=== PATIENT | male | born 1940 | race Caucasian/White ===

== ENCOUNTER 2018-06-13 01:44 | Outpatient (CLI) | payer MEDICARE, OTHER, SELFPAY ==
[2018-06-13 11:47] LABS: TSH (W/Ref FT4) 2.73 uIU/mL (0.358-3.74)
== END 2018-06-13 02:04 ==
PROVIDERS: PCP Family Medicine; Visit Provider Family Medicine
DX: R79.89 Other specified abnormal findings of blood chemistry (principal)
CPT/HCPCS: 36415; 84443

== ENCOUNTER 2018-11-08 10:08 | Outpatient (CLI) | payer MEDICARE, OTHER, SELFPAY ==
--- NOTE | 2018-11-08 10:00 | DI.RAD_ITS ---
SYMPTOMS/DIAGNOSIS: FELL ON LT HIP, LT HIP PAIN, M25.552 LEFT HIP AND PELVIS: Three views were obtained. There is minimal hypertrophic spurring of the acetabula bilaterally. Mild DJD of the SI joints noted. No evidence of acute fracture involving the left hip.
[2018-11-08 12:49] LABS: CREATININE 0.91 mg/dL (0.70-1.30); Potassium 4.4 mmol/L (3.5-5.1)
== END 2018-11-08 10:28 ==
PROVIDERS: PCP Family Medicine; Visit Provider Family Medicine
DX: M25.552 Pain in left hip (principal); I10 Essential (primary) hypertension; M53.3 Sacrococcygeal disorders, not elsewhere classified
CPT/HCPCS: 36415; 73502; 82565; 84132

== ENCOUNTER 2019-11-08 02:59 | Outpatient (CLI) | payer MEDICARE, OTHER, SELFPAY ==
[2019-11-08 15:46] LABS: CREATININE 0.98 mg/dL (0.70-1.30); Potassium 4.2 mmol/L (3.5-5.1); Uric Acid 6.5 mg/dL (3.5-7.2)
== END 2019-11-08 03:19 ==
PROVIDERS: PCP Family Medicine; Visit Provider Family Medicine
DX: I10 Essential (primary) hypertension (principal); E79.0 Hyperuricemia without signs of inflammatory arthritis and tophaceous disease
CPT/HCPCS: 36415; 82565; 84132; 84550

== ENCOUNTER 2020-11-13 04:06 | Outpatient (CLI) | payer MEDICARE, OTHER, SELFPAY ==
[2020-11-13 12:29] LABS: Potassium 3.8 mmol/L (3.5-5.1)
== END 2020-11-13 04:07 | disposition home or self-care (01) ==
LOC: LOS 04:06
PROVIDERS: PCP Family Medicine; Visit Provider Family Medicine
DX: E11.65 Type 2 diabetes mellitus with hyperglycemia (principal); I10 Essential (primary) hypertension
CPT/HCPCS: 36415; 82565; 84132

== ENCOUNTER 2020-12-02 09:09 | Outpatient (CLI) | payer MEDICARE, OTHER, SELFPAY ==
--- NOTE | 2020-12-02 11:45 | DI.RAD_ITS ---
Exam(s) XR HIP LT COMPLETE AP PELVIS EXAM: XR HIP LT COMPLETE AP PELVIS INDICATION: fell 10 days ago; pain left hip and left lower leg, M25.552. COMPARISON: CR XR hip LT complete AP pelvis from 11/08/2018 TECHNIQUE: 2D digital imaging was performed. FINDINGS: No fracture or dislocation seen. Hip joint spaces are well maintained. There is mild acetabular spu rring. The SI joints show mild degenerative changes. IMPRESSION: Mild degenerative changes. No acute abnormality. DATA REPOSITORY: RADIATION DOSE DELIVERED:
--- NOTE | 2020-12-02 11:45 | DI.RAD_ITS ---
Exam(s) XR TIB/FIB LT EXAM: XR TIB/FIB LT CLINICAL HISTORY: left leg pain s/p fall 10 days ago, M79.605. TECHNIQUE: 2D digital imaging was performed COMPARISON: No exams were available for comparison FINDINGS: BONES: No acute fracture is present. No bony destructive lesion is seen. Visualized portion of knee a nd ankle joints are unremarkable. SOFT TISSUE: Vascular calcifications, otherwise normal. IMPRESSION: Unremarkable radiographs of the left tibia and fibula. DATA REPOSITORY: RADIATION DOSE DELIVERED:
== END 2020-12-02 09:29 ==
PROVIDERS: PCP Family Medicine; Visit Provider Family Medicine
DX: M79.605 Pain in left leg (principal); M25.552 Pain in left hip; M53.3 Sacrococcygeal disorders, not elsewhere classified; M16.12 Unilateral primary osteoarthritis, left hip
CPT/HCPCS: 73502; 73590

== ENCOUNTER 2021-04-02 02:05 | Outpatient (CLI) | payer MEDICARE, OTHER, SELFPAY ==
[2021-04-02 12:54] LABS: Anion Gap 8.3 mmol/L (3-11); BUN 16 mg/dL (7-18); CO2 29.7 mmol/L (21.0-32.0); Calcium 9.1 mg/dL (8.5-10.1); Chloride 105 mmol/L (98-107); Glucose 114 mg/dL (74-106); Potassium 4.7 mmol/L (3.5-5.1); Sodium 143 mmol/L (136-145)
[2021-04-02 13:00] LABS: Calculated LDL 74 mg/dL (<100); Cholesterol 151 mg/dL (<200); HDL Cholesterol 36 mg/dL (40-60); Triglyceride 208 mg/dL (<150)
== END 2021-04-02 02:06 | disposition home or self-care (01) ==
PROVIDERS: Emergency Medicine; PCP Family Medicine; Visit Provider Family Medicine
DX: I10 Essential (primary) hypertension (principal); E87.1 Hypo-osmolality and hyponatremia
CPT/HCPCS: 36415; 80048; 80061

== ENCOUNTER 2021-04-20 00:36 | Outpatient (CLI) | payer MEDICARE, OTHER, SELFPAY ==
--- NOTE | 2021-04-20 07:00 | DI.US_ITS ---
Exam(s) US CAROTID EXAM: US CAROTID CLINICAL HISTORY: carotid calcification,i65.29. TECHNIQUE: Ultrasound carotids performed using grayscale, color-flow, and spectral Doppler imaging. COMPARISON: No exams were available for comparison FINDINGS: RIGHT CAROTID ARTERY: Mild plaque at the level the carotid bifurcation proximal ICA. No elevated velocities. LEFT CAROTID ARTERY: There is mild plaque at the level the carotid bifurcation and proximal ICA. There are no elevated ve locities. VERTEBRAL ARTERIES: Antegrade flow was demonstrated in both vertebral arteries. Measurements: R Bulb: 54.6cm/s PS / 15.4cm/s ED R CCA: 84.2cm/s PS / 20.6cm/s ED R ECA: 72cm/s PS / 12.9cm/s ED R ICA Prox: 61.1cm/s PS /16.7cm/s ED R ICA Mid: 66.8cm/s PS / 25.1cm/s ED R ICA Distal: 79.7cm/s PS /20.6cm/s ED R Vert: 50.8cm/s PS / 13.5cm/s ED R SVR: 0.95 R DVR: 1 L Bulb: 69.4cm/s PS /14.1cm/s ED L CCA: 87.4cm/s PS / 21.9cm/s ED L ECA: 78.4cm/s PS /16.1cm/s ED L ICA Prox:56.6cm/s PS / 16.1cm/s ED L ICA Mid: 75.8cm/sPS / 27.6cm/s ED L ICA Distal: 78.4cm/s PS / 29.6cm/s ED L Vert: 45cm/s PS / 12.2cm/s ED L SVR: 0.9 L DVR: 1.35 IMPRESSION: Mild bilateral plaque. Less than 50 percent stenosis bilaterally. No elevated velocities. Criteria for Carotid Stenosis: Normal: ICA PSV <125 cm/s no plaque or intimal thickening is visible. <50% stenosis: ICA PSV <125 cm/s and plaque or intimal thickening is visible. 50-69% stenosis: ICA PSV is 125-250 cm/s and plaque is visible. >70% stenosis to near occlusion: ICA PSV >250 cm/s with visible plaque and luminal narrowing. DATA REPOSITORY:
== END 2021-04-20 00:56 ==
PROVIDERS: PCP Family Medicine; Visit Provider Emergency Medicine
DX: I65.29 Occlusion and stenosis of unspecified carotid artery (principal)
CPT/HCPCS: 93880

== ENCOUNTER → 2021-11-20 00:18 | Outpatient (CLI) | payer MEDICARE, OTHER, SELFPAY ==
--- OUTSIDE RECORDS SUMMARY | 2021-11-20 00:23 | XMS_ITS | Encounter Summary ---
:1940 Author Organization [facility] [place] [address] Care Team Providers Name Role Phone Rigoberto Padgett MD Primary Care Provider [phone] Encounter Details Date Type Department Care Team Description 09/07/2021 Office Visit Dermatology at [facility], [place] eoplasm of unspecified behavior of bone, soft tissue, and skin; Rachael MCNAIR AK (actinic keratosis) [address] [place] [address] [facility]-DERMATOLOGY [place], [place] [address] Social History Tobacco Use Types Packs/Day Years Used Date Former Smoker Quit: 1983 Smokeless Tobacco: Never Used Sex Assigned at Date Recorded Not on file documented as of this encounter Progress Notes [place] C[place]vas, APPLICATION ANALYST - 09/07/2021 4:30 PM EDT Images from the original note were not included. DEPARTMENT OF DERMATOLOGY Medical Dermatology Clinic Provider: Bolivar Diaz MD Patient's preferred name Antonio Preferred contact method for results []myDH []Letter []Phone: Home Detailed phone message OK? Yes Are there any other people with whom we may discuss your care? No PAST MEDICAL HISTORY If no, type N. If yes, type date, location, treatment Melanoma N Dysplastic nevi N SCC N BCC N AKs LN2 Other relevant past medical history (i.e. 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 If yes, include details below Allergy to lidocaine, epinephrine, Dermabond, chlorhexidine, or adhesives: N Bleeding disorder or blood thinners: N Pacemaker, defibrillator, deep brain stimulator, cochlear implant: N History of Present Illness: Antonio Iverson is a 80 y.o. year old. Patient returns to clinic today for a follow up of Actinic Damage and AKs treated on the face, he notes that some have gone away, he has a lump on the left preauricular that he is concerned about. Last visit at [facility] Derm: 01/06/2021 Last visit with this provider: 01/06/2021 Medications: Reviewed in eD-H Allergies: Reviewed in eD-H Skin Examination: Neck-up skin examination of the scalp, hair, face, ears, and neck was normal with the exception of the findings below Assessment/Plan # Favor BCC - left preauricular: 6 mm pink pearly papule with arborizing vessels under dermoscopy - joint decision made to take a biopsy today for further diagnostic information - discussed with pt potential treatment opens of ED&C vs. Excision vs. Mohs surgery and pros andcons of different treatment options Procedure: Skin biopsy by shave technique Discussed indications for procedure and expectations including risks and benefits. Verbal consent obtained. Skin prep with alcohol. Local anesthesia with 1% lidocaine, 1/100,000 epinephrine. A sample of the lesion was removed by shave technique to the level of the dermis and submitted to Pathology. Hem ostasis obtained. There were no complications; the patient tolerated the procedure well. The wound was dressed. Post-procedure expectations, wound care and activity restrictions were reviewed. Follow-up based on pathology results. # Actinic keratosis - Ill-defined gritty papule(s) on the left ear x 2 - Explained etiology, natural history and premalignant potential of these lesions. - Patient opted to proceed with liquid nitrogen. - Patient should return to return to clinic for re-evaluation if lesion(s) does not resolve with this treatment. Procedure: Destruction of lesion(s) with cryotherapy. Location(s): As noted above Number: 2 Discussed procedure and expectations including risks and benefits. Verbal consent obtained. Treated with LN2. There were no complications. Patient tolerated the procedure well. Post-procedure expectations and wound care were reviewed. Photo was taken and charted with patient's verbal consent. Left preauricular RTC: Pending pathology []Note routed to medical office secretary []Recall has been placed in scheduling system []Appointment scheduled at checkout Scribe attestation: Ar Malloy [facility] who has performed the documentation for this encounter in the presence of and acting as a scribe for Bolivar Diaz MD. I performed the above scribed service and agree with the accuracy of the documentation in this encounter. Reviewed and signed by: Bolivar Diaz MD Dermatology [facility] Bolivar Diaz MD - 09/07/2021 4:30 PM EDT Biopsy results consistent with BCC. Given location I recommend further treatment with Mohs surgery. Seen and reviewed by: [facility] Department of Dermatology documented in this encounter Plan of Treatment Not on filedocumented as of this encounter Procedures Procedure Name Priority Date/Time Associated Diagnosis Comme nts SURGICAL PATHOLOGY Routine 09/07/2021 4:38 PM Res ults for this REPORT EDT procedure are i n the results section. SPECIMEN TO Routine 09/07/2021 4:38 PM Neoplasm of Results f or this PATHOLOGY EDT unspecified behavior procedu re are in of bone, soft the results tissue, and skin section. documented in this encounter Results Surgical Pathology Report (09/07/2021 4:38 PM EDT) Component Value Ref Test Analysis Performed At [facility] gist Range Method Time Signature Surgical [id number] ? Location: [facility] Pathology [place]ILIA Report The signing pathologist has (i) examined the relevant preparation(s) for the [facility] specimen(s) and (ii) rendered or confirmed the diagnosis(es) . HOSPITAL LABORATORY . ?Surgic al Pathology DIAGNOSIS Left preauricular, skin shave biopsy: - ??Basal cell carcinoma, no dular type, present at the peripheral and deep specimen edges Electronically signed by: ?Doris Patel MD Verified: ??09/09/2021 13:19 ??Dermatopathologist Performed at: ??-[facility] Dept. of Pathology, [place], [place] SPECIMEN(S) SUBMITTED A - left preauricular, skin shave biopsy (1) CLINICAL INFORMATION 6 mm pink pearly papule with arborizing vessels under derm oscopy; favor BCC SPECIMEN PROCESSING A - Labeled/Fixative: Patient demographics, formalin. Quantity/Size: ??Single, 0.6 x 0.4 x 0.1 cm. Tissue Description: Shave of a miller-pink skin papule. Sections/Processing: Inked, bisected and entirely submitted in 1 cassette labeled A1. ??sns Specimen (Source) Anatomical Collection Method Collection Time Re ceived Time Location / / Volume Laterality 09/07/2021 4:38 PM EDT Bolivar Diaz MD PATHOLOGY/CYTOLOGY ORDERABLE S Performing Organization Address City/[facility]/ZIP Code Phon e Number [address] Specimen to Pathology (09/07/2021 4:38 PM EDT) Specimen Anatomical Collection Method Collection Time Receive d Time (Source) Location / / Volume Laterality AP Specimen 09/07/2021 4:38 PM 4:38 EDT PM EDT Narrative [facility] LAB[facility]Y - 09/07/2021 4:38 PM EDT Specimen requisition ordered. ??Separate Pathology report to follow Bolivar Diaz MD PATHOLOGY/CYTOLOGY ORDERABLE S Performing Organization Address City/[facility]/ZIP Code Phon e Number [facility] [place] [address] documented in this encounter Visit Diagnoses Diagnosis Neoplasm of unspecified behavior of bone , soft tissue, and skin AK (actinic keratosis) Actinic keratosis documented in this encounter Care Teams Cleaner And Preparer Relationship Specialty Start Date End Date Rigoberto Padgett MD PCP - General Family Medicine 12/12/[address] [place] [address] documented as of this encounter
--- OUTSIDE RECORDS SUMMARY | 2021-11-20 00:23 | XMS_ITS | Encounter Summary ---
:1940 Author Organization [facility] [place] [address] Care Team Providers Name Role Phone Rigoberto Padgett MD Primary Care Provider [phone] Encounter Details Date Type Department Care Team Description 09/30/2021 Telephone Dermatology at [facility] Bolivar Diaz MD [address] [place] [address] [facility]-DERMATOLOGY [phone] [place], [place] [address] (Wo rk) Social History Tobacco Use Types Packs/Day Years Used Date Former Smoker Quit: 1983 Smokeless Tobacco: Never Used Sex Assigned at Date Recorded Not on file documented as of this encounter Miscellaneous Notes Telephone Encounter - Nicole Morgan - 09/30/2021 1:35 PM EDT Pt called about biopsy on 09/07 it shows that he needs a MOHS procedure and the referral is not in the system yet. Can this be put in and the pt called. R documented in this encounter Plan of Treatment Not on filedocumented as of this encounter Visit Diagnoses Not on filedocumented in this encounter Care Teams Youth Care Worker Relationship Specialty Start Date End Date Rigoberto Padgett MD PCP - General Family Medicine 12/12/[address] [place] [address] documented as of this encounter
--- OUTSIDE RECORDS SUMMARY | 2021-11-20 00:23 | XMS_ITS | Encounter Summary ---
:1940 Author Organization [facility] [place] [address] Care Team Providers Name Role Phone Rigoberto Padgett MD Primary Care Provider [phone] Reason for Visit Reason Comments Skin Lesion Consultation (Routine) - Closed Specialty Diagnoses / Procedures Referred By Contact Refer red To Contact Dermatology Diagnoses Disorder of the skin and subcutaneous tissue, unspecified LESION ON PINNA OF BOTH EARS AND R FACIAL LESION Rigoberto Padgett MD [facility] Dermatology [address] [place] [address] [place], [place] [address] Referral ID Status Reason Start Date Expiration Date Visits V isits Requested Authorized [id number] Closed Consult, Test 12/03/2020 12/03/2021 [facility] PCP Updated and/or Approved Encounter Details Date Type Department Care Team Description 01/06/2021 Office Visit Dermatology at [facility] [place], Gwendolyn Sequeira (actinic Road keratosis) [address] [place] [address] [facility]-DERMATOLOGY [place], [place] [address] Social History Tobacco Use Types Packs/Day Years Used Date Former Smoker Quit: 1983 Smokeless Tobacco: Never Used Sex Assigned at Date Recorded Not on file documented as of this encounter Patient Instructions Patient InstructionsJudd Barahona LPN - 01/06/2021 11:15 AM EDT Actinic Keratoses You have been diagnosed today with Actinic Keratosis (AK). These dry, scaly patches are considered the earliest stage in the development of skin cancer. In rare cases, an AK can progress to skin cancer. Because of this risk, AKs are usually treated. You were treated today with Liquid Nitrogen. This is the most common treatment for AKs. Liquid nitrogen is extremely cold, and freezes the surface of the skin, causing the lesion to flake off. Treatment with liquid nitrogen can be uncomfortable, but discomfort should subside after a couple of hours. The area treated will look red and irritated, and it may blister up or turn dark, then fall off. This is normal! You do not need any special treatment for the area, but you may find cold compresses and/or a light application of Vaseline soothing. For best results, do not rub or pick at the healing lesion. Expected healing time is 3-4 weeks. Please contact the Dermatology clinic if the lesion has not fully resolved after 6 weeks. documented in this encounter Progress Notes Bolivar Diaz MD - 01/06/2021 11:15 AM EDT Images from the original note were [...] nevi N SCC N BCC N AKs N Other relevant past medical history (i.e. eczema, [...] is a 80 y.o. year old. Patient is referred to the clinic at the request of Rigoberto Padgett for lesions on the face: - Present for a long, have been frozen previously but this did not help, just caused some irritation. Has not been getting new ones. He has not tried using anything else on these lesions. - He has had many moles removed a long time ago (1983), about 30. Review of Systems: General: Feeling well. Skin: No other skin concerns. Medications: Reviewed in eD-H Allergies: Reviewed in eD-H Skin Examination: Neck-up skin examination of the scalp, hair, face, ears, and neck was normal with the exception of the findings below Assessment/Plan #. Actinic keratosis - Ill-defined gritty papule(s) on the right ear x3, left ear x2, left nasal sidewall x1, left cheek x6, - Explained etiology, natural history and premalignant potential of these lesions. - Patient opted to proceed with liquid nitrogen. - Patient should to return to clinic for re-evaluation if lesions do not resolve with this treatment. -Discussed field therapy options vs LN2. -If patient calls they can request 5-FU. Procedure: Destruction of lesion(s) with cryotherapy. Location(s): As noted above Number: 12 Discussed procedure and expectations including risks and benefits. Verbal consent obtained. Treated with LN2. There were no complications. Patient tolerated the procedure well. Post-procedure expectations and wound care were reviewed. #. Sunscreen: -use at least SPF 30 sunscreen preferably zinc or titanium oxide, avoid peak hours of the day between 10am-2pm when the sun is the brightest. Neutragena broad spectrum, Vanicream SPF 35. Most important is to find a sunscreen that you like andto use it regularly -wear a broad brimmed hat when outside, and sunglass Other items to document in the assessment/plan if relevant ??? Sun protection discussed (protective clothing and SPF30+ broad-spectrum sunscreen) RTC: 6 months for Actinic Damage FUV []Note routed to medical secretary [x]Recall has been placed in scheduling system []Appointment scheduled at checkout Scribe attestation: Liz Alvarez and Judd Barahona have performed the documentation for this encounter in the presence of and acting as a scribe for Bolivar Diaz MD I performed the above scribed service and agree with the accuracy of the documentation in this encounter. Reviewed and signed by: Bolivar Diaz MD Dermatology [facility] documented in this encounter Plan of Treatment Not on filedocumented as of this encounter Visit Diagnoses Diagnosis AK (actinic keratosis) Actinic keratosis documented in this encounter Care Teams Sail Lay Out Worker Relationship Specialty Start Date End Date Rigoberto Padgett MD PCP - General Family Medicine 12/12/20 [address] [place] [address] documented as of this encounter
--- OUTSIDE RECORDS SUMMARY | 2021-11-20 00:23 | XMS_ITS | Encounter Summary ---
:1940 Author Organization [facility] [place] [address] Care Team Providers Name Role Phone Rigoberto Padgett MD Primary Care Provider [phone] Reason for Visit Reason Comments Basal Cell Carcinoma Encounter Details Date Type Department Care Team Description 10/30/2021 [facility] Basal cell carcinoma Margaret Cano MD (BCC) of left [address] [facility] [address] [facility] [phone] [place] [address] Social History Tobacco Use Types Packs/Day Years Used Date Former Smoker Quit: 1983 Smokeless Tobacco: Never Used Sex Assigned at Date Recorded Not on file documented as of this encounter Progress Notes Sara Vargas RN - 10/30/2021 8:45 AM EDT Mohs consultation and preoperative note (H&P) Patient Name: Antonio Iverson Age: 80 y.o. Date of : 1940 Today's Date: 10/30/2021 REFERRING PROVIDER: Bolivar Diaz MD CC: Mohs micrographic surgery for treatment of a cutaneous tumor HPI: Antonio Iverson is a 80 y.o. 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 The dermatologic preoperative information sheet was reviewed with pertinent positive and negative as below. DERMATOLOGIC PRE-OPERATIVE EVALUATION AND REVIEW OF SYSTEMS History of Mohs surgery? no Pacemaker/Defibrillator? no Joint replacement or other implantable devices (e.g. Cochlear implant)? If yes then when? Yes - 2 crowns on teeth Do you take a blood thinner? No History of organ transplant? no History of artificial valve or stroke? no History of liver disease or bleeding disorder? no Do you have any medical problems that may affect your upcoming surgery? no Do you have any concerns regarding your upcoming surgery? yes - anxious SOCIAL HISTORY: Makes Own Decisions Yes Hearing aid or other devices: No Relevant travel history or future plans: none Tobacco use (amount per day, type of tobacco): no Do you have any physical limitations that may affect your surgery?: yes - has trouble getting up ALLERGIES: Allergies reviewed MEDICATIONS: Medications reviewed documented in this encounter Plan of Treatment Not on filedocumented as of this encounter Visit Diagnoses Diagnosis Basal cell carcinoma (BCC) of left preau ricular region documented in this encounter Care Teams Radio Division Captain Relationship Specialty Start Date End Date Rigoberto Padgett MD PCP - General Family Medicine 12/12/[address] [place] [address] documented as of this encounter
--- OUTSIDE RECORDS SUMMARY | 2021-11-20 00:23 | XMS_ITS | Clinical Summary ---
:1940 Author Organization [facility] [place] [address] Care Team Providers Name Role Phone Rigoberto Padgett MD Primary Care Provider [phone] Allergies Active Allergy Reactions Severity Noted Date Comments Oxycodone-Acetaminophen 10/30/2021 Kmtnwpw-Hkd-Hsx Reductase Inhibitors 10/14 Joint pain Medications Medication Sig Dispensed Refills Start Date End Date Status atenolol (TENORMIN) 50 mg 0 10/02/2004 Active tablet allopurinoL (Zyloprim) 0 11/07/2020 Active 100 mg Tablet cholecalciferol, Vitamin 1,000 Units. 0 12/08/2017 Active D3, 25 mcg (1,000 unit) Capsule lisinopriL (Zestril) 5 mg 0 11/29/2020 Active Tablet montelukast (Singulair) 0 10/06/2020 Active 10 mg Tablet vit Take by mouth. 0 Activ e C/E/Zn/coppr/lutein/zeaxa n (PRESERVISION AREDS-2 ORAL) Active Problems No known active problems Encounters Date Type Specialty Care Team Description 10/30/2021 Procedure visit Dermatology Dewey Patterson MD Basal cell carcinoma (BCC) of left preauri cular region 10/30/2021 Clinical Support Dermatology Dewey Patterson MD Basa l cell carcinoma (BCC) of left preauri cular region 09/30/2021 Orders Only Dermatology Bolivar Diaz, Basal cell carcinoma of MD left preauricul ar region 09/30/2021 Telephone Dermatology Bolivar Diaz MD 09/07/2021 Office Visit Dermatology Bolivar Diaz, Neoplasm o f unspecified behavior of bone, soft tissue, and skin; MD FAY (actinic ker atosis) from Last 3 Months Social History Tobacco Use Types Packs/Day Years Used Date Former Smoker Quit: 1983 Smokeless Tobacco: Never Used Sex Assigned at Date Recorded Not on file Last Filed Vital Signs Vital Sign Reading Time Taken Comments Blood Pressure 148/88 10/30/2021 8:49 AM EDT Pulse 56 10/30/2021 8:49 AM EDT Temperature - - Respiratory Rate - - Oxygen Saturation - - Inhaled Oxygen Concentration - - Weight - - Height - - Body Mass Index - - Plan of Treatment Health Maintenance Due Date Last Done Comments Covid-19 Vaccine (#1) 1945 Hepatitis C Screening 12/30/1959 Tdap adult 1960 Tetanus vaccine 1960 Zoster vaccine (1 of 2) 12/30/1991 Advance Directive 1996 Pneumoccocal Vaccine: 65+ (1 - PCV) 2006 Influenza (Flu) vaccine (1 of 1 - Influenza standard 01/14/2022 series) Procedures Procedure Name Priority Date/Time Associated Diagnosis Comme nts SURGICAL PATHOLOGY Routine 09/07/2021 4:38 PM Res ults for this REPORT EDT procedure are i n the results section. SPECIMEN TO Routine 09/07/2021 4:38 PM Neoplasm of Results f or this PATHOLOGY EDT unspecified behavior procedu re are in of bone, soft the results tissue, and skin section. from Last 3 Months Results Surgical Pathology Report (09/07/2021 4:38 PM EDT) Component Value Ref Test Analysis Performed At [facility] Range Method Time Signature Surgical [id number] ? Location: [facility] Report The signing pathologist has (i) examined the relevant preparation(s) for the [facility] specimen(s) and (ii) rendered or confirmed the diagnosis(es) . [facility] . ?Surgic al Pathology DIAGNOSIS Left preauricular, skin shave biopsy: - ??Basal cell carcinoma, no dular type, present at the peripheral and deep specimen edges Electronically signed by: ?Doris Patel MD Verified: ??09/09/2021 13:19 ??Dermatopathologist Performed at: ??-[facility] [place] Dept. of Pathology, [place], [place] SPECIMEN(S) SUBMITTED A - left preauricular, [...] MD PATHOLOGY/CYTOLOGY ORDERABLE S Performing Organization Address City/State/[place] [address] Specimen to Pathology (09/07/2021 4:38 PM EDT) Specimen Anatomical Collection Method Collection Time Receive d Time (Source) Location / / Volume Laterality AP Specimen 09/07/2021 4:38 PM 4:38 EDT PM EDT Narrative [facility] - 09/07/2021 4:38 PM EDT Specimen requisition ordered. ??Separate Pathology report to follow Bolivar Diaz MD PATHOLOGY/CYTOLOGY ORDERABLE S Performing Organization Address City/State/ZIP Code Phon e Number [address] from Last 3 Months Insurance Payer Benefit Plan / Subscriber ID Effective Dates Phone Addre ss Type Group MEDICARE MEDICARE PART [id number] 2020-Presen [phone] [place] [id number] FOR FOR [id number] 2007-Alexa [phone] [address] [place] [address] [id number] [address] (Home) [place] [phone] Care Teams Carpentry Teacher Relationship Specialty Start Date End Date Rigoberto Padgett MD PCP - General Family Medicine 12/12/[address] [place] [id number]
--- OUTSIDE RECORDS SUMMARY | 2021-11-20 00:23 | XMS_ITS | Encounter Summary ---
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 Bolivar Diaz MD Iriondo, Manuel, MD [facility] [place] [address] [place] [address] Fax: Referral ID Status Reason Start Date Expiration Date Visits V isits Requested Authorized [id number] Closed Consult, 09/30/2021 09/30/2022 1 1 Test & Treat Encounter Details Date Type Department Care Team Description 10/30/2021 Procedure visit Dermatology at [facility] [place], Basal cell carcinoma Rachael MCNAIR (BCC) of left [address] [facility] [id number] [place] [phone] [place] [address] Social History Tobacco Use Types Packs/Day Years Used Date Former Smoker Quit: 1983 Smokeless Tobacco: Never Used Sex Assigned at Date Recorded Not on file documented as of this encounter Last Filed Vital Signs Vital Sign Reading Time Taken Comments Blood Pressure 148/88 10/30/2021 8:49 AM EDT Pulse 56 10/30/2021 8:49 AM EDT Temperature - - Respiratory Rate - - Oxygen Saturation - - Inhaled Oxygen Concentration - - Weight - - Height - - Body Mass Index - - documented in this encounter Patient Instructions Patient InstructionsSara Vargas RN - 10/30/2021 11:13 AM EDT Your staff surgeon today was [facility] MD. Your wound(s) was repaired by [id number] stitchescalled a primary repair. You do not need to come back for suture removal because only absorbable sutures were used today. If the absorbable sutures bother your skin or do not absorb after 2 weeks, you may call us to remove them for you. Instructions are as below. Please keep this as a reference: Wound Care For wounds closed with absorbable-only stitches: Gently remove your initial bandage (after 48 hours from surgery) and begin wound care as below. If your initial bandage only lasts 24 hours (for example, falls off sooner), this is okay. Resume your wound care and bandaging instructions as below. Change your bandage once a day (and whenever it becomes wet or soaks through). DO WOUND CARE FOR ONEWEEK. For bandage changes: Wash hands with soap and water, or use gloves that you can purchase a local pharmacy or drug store. Clean the surgical area with cotton-tipped swabs or gauze dipped in soapy water (recommend liquid soap in clean room temperature water). Do not scrub the area or put direct shower water pressure onto your wound. It is okay to allow soapy water to run over your wound in the shower. If you cannot remove crusted areas, you may soak with wet gauze first for 15 to 20 minutes to help soften it. Pat the area dry with clean gauze or cotton swabs. Do not rub. Use a cotton swab to apply a generous layer of petroleum jelly over the incision lines and any open-wound areas. Cover with clean nonstick gauze or other nonstick dressing, such as Telfa. This may be purchased over the counter at a drug store. Secure with paper tape or bandage. Band-aids are okay, but typically have more adhesive that can irritate the skin compared to paper tape. Discontinue wound care after 7 days. If any portion of the incision was left open to heal on its own, continue to apply Vaseline daily until healed. Allow the absorbable stitches to heal. If the top stitches that are absorbable are irritating your skin, you may call us to have them removed. Otherwise, they will be absorbed naturally in approximately 2 weeks. It may absorb as quickly as 4 days. Keep in mind that if you do not want to use a bandage at all due to difficulty, allergies, irritation of skin, cost, time, or inconvenience --- you can certainly avoid bandages altogether. However, it is imperative that you continue with topical petrolatum ointment or Aquaphor (plain, fragrance-free).This may need to be applied several times daily if it gets wiped off, washed off, or dries out. Things to purchase for wound care: -Nonstick gauze -A tube or tub of petrolatum jelly (fragrance-free, no dye, not lotion) -paper tape -cotton swabs -gloves (optional) -Dial or other antibacterial liquid soap After Surgery If you are a tobacco user please attempt to decrease the amount of tobacco products used following surgery for 1-2 weeks. Limit alcohol intake to one drink per day for the next 3 days. Do not participate in athletic activities for 5-7 days, unless you were told a different timeline during your visit. Athletic activity is a relative term, but this is considered to be anything that could potentially raise your heartrate or blood pressure. Elevating your heart rate and blood pressure increases the risk of swelling, bleeding, wound opening, and it could lead to worse scarring. Walking at a leisurely pace is fine for most people, but not if you are walking for the purpose of exercise. When in doubt, take it easy or call us. Do not lift anything heavier than 10 pounds for 5-7 days postoperatively. Some commissioner conservation of resources may need to be delayed or delegated such as vacuuming, mowing the lawn, snow shoveling, or caring for young children that need to be carried/lifted. Working any major muscle groups increases your heart rate and can increasing bleeding. Avoid swimming, hot tubs, and direct water pressure for 3 weeks after surgery. You may shower, however, once your initial bandage comes off in 48 hours. Avoid antibiotic ointments such as triple antibiotic creams. Stick with your wound care instructions, please. Whenever possible, it is helpful to take photographs with your camera or cell phone of any problems or concerns you see with your wound. We often ask for photos when you call with questions. Starting 2 months following surgery, you can begin firm massage to any areas of firm scar along yourincision to soften the scar and reduce bumpiness. Do this 3 times per day, 3 minutes each time. Do not start massage before 2 months. Your wound will appear almost completely healed soon after sutures are removed (about 1 week), but incisions can remain bright red for several weeks. Then the scarring and healing process continues under the skin for 6 months until to 2 years. The scar may become less red, less firm, and more subtle during this time; please note that the rate of improvement varies depending on the person. Most redness, discoloration, bumpiness resolves by 6 months, and most patients will look presentable within a few weeks after surgery. Keep your follow-up appointments and make sure to continue to have your skin checked, as often as isrecommended by your student life advisor, for new skin cancers. This is once per year for most patients. Your can expect your scar to be red for several weeks with gradual fading of the redness. Your scar will also be raised and lumpy until the dissolvable sutures under the skin get absorbed by your body which can take 3-4 months. The scar will flatten eventually. If you have a skin condition called rosacea, the redness can last long-term, or you can get an increased appearance of red vessels to the skin. The appearance of vessels slightly improves, but tends torespond well to laser treatments. Occasionally, about 20% of the time on the face, the stitches under the skin can spit out of the incision to the surface. It can start out looking like a pimple or blemish directly on your incision. Sometimes you can feel something poking through the incision. it can look also minic a small area of infection, so please let us know before you go to another provider for antibiotics. This means thatthe suture may need to be trimmed or removed when you return for your wound check. This typically occurs a few weeks after surgery if it does occur. To optimize your scar, and best cosmetic result, please avoid direct sunlight to your incision for the first 6 months following surgery. UV ray exposure to your incision may cause the redness to last longer, or to cause permanent darkening of your scar. You can avoid sun by covering your incision witha bandage when outdoors, wearing broad-rimmed hats, and wearing SPF 30 to 50 sunscreen (broad spectrum). Any time you have skin surgery or any type of surgery, you can experience mild sensation loss (numbness) in the area of surgery. Massage starting at 8 weeks after surgery can help. Swelling and bruising is common, and expected, especially if your surgery site was on the forehead, cheeks, temples, nose, or eyelids. . Sometimes it can be quite profound, where the eyelids swell shut, or getting black eyes. This is especially true if you are on blood thinners such as aspirin. Swelling and bruising will peak at about 48 hours after surgery. Bruising and swelling will gradually resolve. You can use ice packs or a bag of frozen peas for 15-20 minutes, 20 minutes off, up to 3-4 times daily to areas of swelling on the face. Use caution not to put the icy item directly onto your incision, or directly in contact with your skin as this can damage skin. Avoid prolonged use more than 20 minutes. The best way to use ice packs is over the bandage, or using a light cloth/paper towel barrier between the ice pack and your skin. You can ice for as many days as needed until swelling has resolved. Eyelid and lip swelling is typically the last type of swelling to resolve. Antibiotics: If you were given antibiotic prescription, it is important to start them the evening of your surgerydate. However, most patients do not need antibiotics after surgery. For pain: Most patients of different ages do not require pain medications. If you do feel soreness, throbbing or sharp pains, start by taking over the counter extra strength acetaminophen (up to 3000 mg in a 24 hour period). Generally, we like you to avoid NSAIDS (non-steroid anti-inflammatory drugs such as ibuprofen) for the first 48 hours after surgery as this can increase risk of bleeding. However, if acetaminophen is not helping with pain, you can alternate acetaminophen with iburpofen or other NSAID. Icepacks over your bandage without getting your bandage wet can also help with pain and swelling. Frozen peas work well as ice packs. THIS IS AN EXAMPLE OF A PAIN TREATMENT SCHEDULE: 1) You can take 500 mg acetaminophen one tablet by mouth at 6:00pm. This is over the counter. 2) You can take 400 mg of ibuprofen two hours later, at 8:00 pm, or other NSAID such as naproxen, aslong as it does not interact with your other medications and your other doctors have not told you toavoid this. This is over the counter. Check to see how many milligrams (mg) each of your ibuprofen tablets are. Most of the time, ibuprofen comes in 200 mg tablets, so 400 mg would mean taking two of these tablets or capsules. 3) You can take 500 mg of acetaminophen at 10:00 pm. Keep track of your total acetaminophen in a 24 hour period as your maximum should be 3000 mg total in a 24 hour period of this medication. 4) At midnight, you can take another 400 mg of ibuprofen. 5) you can continue on this schedule over the next 2 days, making sure to keep tabs of your total acetaminophen. If you are still in pain after trying the above, please call us. When to call your surgeon: Fever of 100.4 degrees Fahrenheit or higher Bleeding not controlled with direct firm pressure to your wound. Bleeding is most common in the first 48 hours. Pain that is worsening and not relieved by over the counter medications such as acetaminophen (up do0718 mg in a 24 hour period) Wound reopening after stitching Pus or bad odor from your wound Worsening redness and warmth around your wound If you think your surgery site is infected, please call us before seeking care or antibiotics from other providers Please call us before seeking care in an emergency room or primary care. If you do call, please leave your full name, phone number, date of , date of surgery, and medical record number if you have it. If after hours, please call the car dumper operator helper or [phone] and ask for the student life advisor on-call. If you have any non-urgent questions or concerns, please feel free to call my office or contact me through our patient portal, [email or web address], at [email or web address] How to contact us during business hours Dermatology at [facility] [address]: Mohs scheduling or Mohs follow-up appointments: [phone] documented in this encounter Progress Notes [facility] Patterson MD - 10/30/2021 9:00 AM EDT Images from the original note were not included. Summary of Procedure(s): Site: Left preauricular Tumor Type: Basal Cell Carcinoma, nodular Stages to clear tumor: 2 Repair: Intermediate linear closure Images: The patient was asked to call with any issues and is aware that I am available 06/12 should questionsarise. [facility] Patterson MD Mohs Micrographic Surgery and Dermatologic Oncology Department of Dermatology Please note that I have reviewed the preoperative checklist from today's nursing visit including relevant social history and medications. I have reviewed the preoperative photos if available and the biopsy report. VITAL SIGNS: BP 148/88 (BP Location (NBP): Left arm, Patient Position: Sitting, BP Cuff Sizes: Adult (25-34 cm)) Pulse 56 PHYSICAL EXAMINATION: General: patient is awake, alert, oriented and in no acute distress. Skin: Focused examination of surgical site(s) performed which shows a well healed biopsy site. PHYSICIAN REVIEW OF REPORTS, RECORDS, IMAGES: 1) The accompanying pathology report(s) associated with aforementioned biopsy slide(s) were/was alsoreviewed. Assessment: Antonio Iverson is a 80 y.o. male presenting for: 1. 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 Plan: 1. Findings from the biopsy report, today's clinical exam, and other pertinent details were reviewedwith patient today. All questions were answered. 2. Discussed treatment options based on the above findings. We recommended Mohs micrographic surgeryfor treatment of this tumor. Mohs micrographic surgery was indicated due to patient, site and/or tumor characteristics (see operative report for specific indication). 3. We discussed risks, benefits, and alternative treatment options to the Mohs micrographic surgery procedure and pertinent information including but not limited to the following: ?? Risks include bleeding, infection, scar, recurrence, incomplete tumor removal or inability to cure with surgery alone if the tumor features are more aggressive than the initial pathology indicates. Occasionally, additional adjuvant treatments may be recommended. Additional risks include large wound, prolonged wound and healing, pain, swelling, bruising, increased appearance of vessels or worseningerythema of baseline skin; more rarely risks include damage to underlying structures such as nerves,cartilage, or muscle which could lead to temporary or permanent loss of sensation or motor function. ?? Benefit is precise tumor removal ?? If reconstruction is performed, it is specific to the patient and defect. ?? Discussed that the shape, size, depth of the wound is often not known until the tumor is cleared and thus the reconstruction options are sometimes not known until after tumor clearance. Occasionally, referrals to other providers may be recommended for reconstruction based on patient preference and need. ?? Reviewed the pros and cons of common reconstructions used for this tumor type, size, and location, and that reconstruction may lead to change in appearance. ?? Natural history of scar was discussed, including that the scar will continue to mature for 1-2 years. Recommended avoidance of special ointments or scar creams, and avoidance of direct sun exposure to the scar for optimal recovery. ?? Reviewed that there are some aspects of cosmesis that are dependent on patient's characteristics such as age, skin laxity/texture factors, inflammatory skin diseases such as rosacea, prior surgery/radiation, degree of actinic damage, smoking status, strength of the patient's immune system, diligentwound care, medications, and genetics. ?? Having Mohs surgery may lead to physical limitations for optimal healing, such as restricted physical activity and heavy lifting. 4. The nature of sun-induced photo-aging and skin cancers was discussed. Recommended sun avoidance when possible, especially peak hours of sun 10 am to 2pm, protective clothing such as wide-brimmed hats and long-sleeved clothing, and the use of SPF broad-spectrum sunscreen SPF 50 or higher. 5. Signs and symptoms of skin cancer reviewed. Patient to report any new, changing, or symptomatic lesions and follow up with his or her student life advisor or other skin provider. 6. Discussed avoiding direct sun exposure to scars for best cosmetic result. Note initiated by MONICA Carpio RN has performed the documentation for this encounter in the presence of and actingas a scribe for Dr. Patterson. I performed the above scribed service and agree with the accuracy of the documentation in this encounter. Reviewed and signed by: [facility] Patterson MD Dermatology [facility] Patterson MD - 10/30/2021 9:00 AM EDT Mohs micrographic Surgery Operative Report Patient name: Antonio Iverson : 1940 Date: 10/30/2021 Staff Surgeon and Pathologist:: [facility] Patterson MD Nursing/Tie Tape Machine Operator(s): Sara Foy CMA, RN Physiotherapy Practice Manager (s): David Sarmiento Pre-operative diagnosis: Basal Cell Carcinoma, nodular Post-operative diagnosis: Basal Cell Carcinoma, nodular Location/Site: left preauricular Procedure: Mohs micrographic surgery Indication(s) for Mohs micrographic surgery: Anatomic location for tissue conservation Stages: 2 Preoperative size of tumor: 0.6 x 0.6 cm Stage I The nature and purpose of the procedure, associated risks, possible consequences and complications,and alternative forms of treatment were explained in detail. We reviewed the possible repairs based on the clinical appearance of tumor but discussed that often the repair options may not be known until the tumor has marizol extirpated. Informed consent and permission to take photographs were obtained. The site was confirmed with the patient/authorized support representative/referring physician and/or a photograph form time of biopsy. A pre-operative time-out (procedural pause) was conducted with no unresolved d iscrepancies noted. Local anesthesia was obtained with 1% lidocaine with 1:100,000 epinephrine. The surgical site was prepped and draped in the usual sterile manner. With all visible gross tumor completely excised, the borders of the tumor and 2-3 mm margins were excised as a complete layer. Hemostasis was achieved by electrocoagulation. The excised tissue was oriented and divided into 2 sections, chromacoded, and submitted for frozen sections. The patient tolerated the procedure well and without complications. On my personal microscopic evaluation of the frozen sections, residual tumor was identified as basal brody carcinoma (type of tumor) on section A2 (see section number on map). Stage II The surgical site was re-anesthetized with 1% lidocaine with 1:100,000 epinephrine, re-prepped and redraped in a sterile manner. The residual tumor was re-excised as a complete layer 2-3mm in thickness using the Mohs map to delineate area of residual tumor. Hemostasis was achieved with electrocoagulat ion. The tissue was oriented and divided into 1 sections, chromacoded, and submitted for frozen sections. The patient tolerated the procedure well and without complications. On my personal microscopic evaluation of the frozen sections, no residual tumor was identified on the deep or outer border of the sections. Final defect size: 1.4 x 1.2 cm [facility] Patterson MD Mohs Micrographic Surgery and Dermatologic Oncology Department of Dermatology [address] [place] [address] Repair Operative Report Clinical Diagnosis: 1.4 x 1.2 cm surgical defect secondary to Mohs microscopically controlled excision Location/Site: left preauricular Indication: repair of wound for anatomic/functional orthodoxy Procedure: Intermediate linear closure of Mohs defect Popcorn Candy Maker: Sara Vargas RN Due to the size and location of the defect resulting from the complete removal of the tumor, the postoperative risk of hemorrhage, infection, and the possibility of serious deformity from scarring, and in order to restore proper function and prevent loss of function, the defect was closed in the following manner. The nature and purpose of the procedure, associated risks, possible consequences, complications andalternative methods of treatment were explained to the patient in detail. An informed consent was obtained. The operative site was anesthetized with 1% lidocaine with 1:100,000 epinephrine. The site was prepped and draped in the usual sterile manner. Moderate undermining of the surrounding tissue was performed for tension free closure as necessary and redundant tissue excised. The deep tissues were apposed and sutured with 4-0 Vicryl sutures and the epidermal edges were approximated with 5-0 Fast Absorbing Gut running and/or interrupted sutures. The resulting intermediate linear closure measured 3.2 cm. The surgical site was cleaned and white petrolatum with a pressure dressing was applied. The patient tolerated the procedure well and without complications and was given both verbal and written instruction on postoperative wound care. Follow up as needed. The patient was discharged in good condition. Total local anesthesia with 1% lidocaine with 1:100,000 epinephrine used: 6.0 cc Total local with 0.25% bupivacaine used: 3.0 cc [facility] Patterson MD Mohs Micrographic Surgery and Dermatologic Oncology Department of Dermatology [address] [place] [address] Note initiated by DENA Valle CMA has performed the documentation for this encounter in the presence of and acting as a scribe for Dr. Patterson I performed the above scribed service and agree with the accuracy of the documentation in this encounter. Reviewed and signed by: Dewey Patterson MD Dermatology [facility] documented in this encounter Plan of Treatment Scheduled Referrals Name Type Priority Associated Diagnoses Order S chedule Referral to Outpatient Referral Routine Basal Cell Carcinoma Ordered: Dermatology Of Left Preauricular 022 Region documented as of this encounter Visit Diagnoses Diagnosis Basal cell carcinoma (BCC) of left preau ricular region documented in this encounter Care Teams Print Cutter Relationship Specialty Start Date End Date Rigoberto Padgett MD PCP - General Family Medicine 12/12/[address] [place] [address] [address] [place] [address] documented as of this encounter
--- OUTSIDE RECORDS SUMMARY | 2021-11-20 00:23 | XMS_ITS | Encounter Summary ---
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 Bolivar Diaz MD Iriondo, Manuel, MD [facility] [address] [facility]-DERMATOLOG Y [facility] ANGIE-DERMATOLOGY [place], [place] [phone] [place] [phone] Fax: Referral ID Status Reason Start Date Expiration Date Visits V isits Requested Authorized [id number] Closed Consult, 09/30/2021 09/30/2022 1 1 Test & Treat Encounter Details Date Type Department Care Team Description 09/30/2021 Orders Only Dermatology at [facility] B jyoti cell carcinoma Rachael MCNAIR of left preauricular [address] [place] [address] LYNNE ADAMS-DERMATOLOGY [place], [place] [address] Social History Tobacco Use Types Packs/Day Years Used Date Former Smoker Quit: 1983 Smokeless Tobacco: Never Used Sex Assigned at Date Recorded Not on file documented as of this encounter Progress Notes Dianna Wilson LPN - 09/30/2021 2:56 PM EDT Referred to [facility] per Dr. 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
--- OUTSIDE RECORDS SUMMARY | 2021-11-20 00:24 | XMS_ITS | Encounter Summary ---
:1940 Author Organization [facility] Address [address] [place] [address] Care Team Providers Name Role Phone Unknown, Provider Primary Care Provider Encounter Details Date Type Department Care Team Description 01/28/2017 Results Only [facility] Quintin Stevensonteo Schilling, [address] [address] (Wo rk) Social History Tobacco Use Types Packs/Day Years Used Date Never Assessed Sex Assigned at Date Recorded Not on file documented as of this encounter Plan of Treatment Not on filedocumented as of this encounter Procedures Procedure Name Priority Date/Time Associated Diagnosis Comme [facility] SURGICAL PATHOLOGY Routine 01/28/2017 15:24 Resul ts for this EDT procedure are i n the results section. documented in this encounter Results SURGICAL PATHOLOGY (01/28/2017 15:24 EDT) Pathology Report: SURGICAL PATHOLOGY REPORT [facility] Reports generated via electronic interface contain shahnaz ginal data; LABORATORY however they are lacking the format of the original re port. SERVICES Caution should be taken when reading/interpreting unfo rmatted reports. Name: ? ORTEGA FERRARO ? Accession #: ? [id number] ? : ? 1940 (Age: [age]) ??M ? Collect Date: ? 01/28/2017 ? Location: ? [facility] ? Receive Date: ? 01/29/20 17 ? Provider: STEVENSON SUAREZ DPM Copy to: JAN GARDNER MD ? 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 Document reviewed and electronically signed by: JARON BUI MD Report ??Date: 01/31/2017 16:27 By the signature above, the attending physician certif ies that he/she has personally conducted a gross and/or microscopic examin ation of the described specimens and rendered or confirmed the above diagnosi s. 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 Received in 100% ethanol labelled with proper p atient identification (initials G, H) and proxima l phalangeal head is a 1.3 x 0.8 x 0.8 cm irregular fragment of miller-white to pink osseous tissue. The spec imen is bisected and entirely submitted in 1. JOHANNA Peña (ASCP) 01/28/2017 3:45 PM End of Report Specimen Performing Organization Address City/State/ZIP Code Phon e Number [facility] [address] [place] [address] SERVICES documented in this encounter Visit Diagnoses Not on filedocumented in this encounter Care Teams Table Games Manager Relationship Specialty Start Date End Date Unknown, Provider, PCP - General 02/04/10 documented as of this encounter
--- OUTSIDE RECORDS SUMMARY | 2021-11-20 00:24 | XMS_ITS | Encounter Summary ---
:1940 Author Organization [facility] Address [address] [place] [address] Care Team Providers Name Role Phone Unknown, Provider Primary Care Provider Encounter Details Date Type Department Care Team Description 02/03/[address] [facility] Juan Alberto Gonzalez MD Laboratory Services - [address] [place] [address] [place] [address] [place] [address] [phone] Social History Tobacco Use Types Packs/Day Years Used Date Never Assessed Sex Assigned at Date Recorded Not on file documented as of this encounter Plan of Treatment Not on filedocumented as of this encounter Procedures Procedure Name Priority Date/Time Associated Diagnosis Comme [facility] SURGICAL PATHOLOGY Routine 02/03/2010 0:00 EDT Re sults for this procedure are i n the results section. documented in this encounter Results SURGICAL PATHOLOGY (02/03/2010 0:00 EDT) Pathologist [facility] SURGICAL PATHOLOGY REPORT ? JIMMY LAGUNA Report: Reports generated via electr Genius interface contain original data; ? LAB however they are lacking the format of the original report. ? Caution should be taken when reading/interpreting unformatted reports. ? Name: ? GROSSER, ORTEGA ? Accession #: ? [id number] ? : ? 1940 (Age: 69) ??M ? Collec t Date: ? 02/03/2010 ? Location: ? [facility] ? R eceive Date: ? 02/04/2010 ? Provider: JUAN ALBERTO WALKO MD ? Copy to: GINA VICENTE MD ? Final Pathologic Diagnosis: ? 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 ??See microsco pic and comment. ? Comment: ? This case has been re viewed by Dr. Harjit Marina, who concurs with the ?? above diagnosis. ??(Dr. Patricia engel)/ljn ? Microscopic Description: ? Sections consist of a n excision of a well circumscribed nodule. ??Forming ?? the nodule are interlacing f ascicles of cells with oval nuclei and eosinophilic cytoplasm. ??Scattered large r cells are identified. ??However, there is no ? evidence of mitotic activity or necrosis. ??Desmin (D33, Lab [employer]) and ? Alpha-smooth muscle actin (1 A4, Sigma) confirm the myogenic nature. ??( ? Mason)/ljn ? NOTE: ??One or more of the reagents used in immunohistochemical testing in this case may not have been clear ed or approved by the U.S. Food and Drug ? Administration (FDA). ??The FDA has determined that such clearance or approval is not necessary. ??These tests are used for clinical purposes. ??They should not be regarded as investigational or for research. ??These reagents' ??performance ? characteristics have been de termined by [facility]. ??This ? laboratory is certified unde r the Clinical Laboratory Improvement Amendments of 1988 (CLIA-88) as qualified to perform high complexity clinical laboratory ? testing. ? Document reviewed and electr onically signed by: ? Nikky Cuevas MD ? Report ??Date: 02/10/2010 10 :55 ? By the signature above, the attending physician certifies that he/she has ? personally conducted a gross and/or microscopic examination of the described ? specimens and rendered or co nfirmed the above diagnosis. ? Specimen(s) Received: ? Right forearm subcu n odule ? Clinical History: ? R forearm SQ nodule; ? lipoma ? Gross Description: ? Received in formalin labelled Ortega Iverson and R forearm subcu ? nodule is a firm, ovoid str ucture measuring 0.8 x 0.8 x 0.5 cm. ??The external ?? surface is miller-white and smo oth with a minimal amount of loosely attached ? miller-white and yellow fibrofa tty tissue. ??The specimen is inked black. ??The ? specimen is trisected reveal ing a firm, miller-white cut surface. ??The specimen is submitted entirely in one co ssette. ??/yuliana ? End of Report ? Specimen Performing Organization Address City/State/ZIP Code Phon e Number [facility] [address] [place] [address] SERVICES [facility] [address] [place] [address] documented in this encounter Visit Diagnoses Not on filedocumented in this encounter Care Teams Hand Engraver Relationship Specialty Start Date End Date Unknown, Provider, PCP - General 02/04/10 documented as of this encounter
--- OUTSIDE RECORDS SUMMARY | 2021-11-20 00:24 | XMS_ITS | Encounter Summary ---
:1940 Author Organization [facility] Address [address] [place] [address] Care Team Providers Name Role Phone Unknown, Provider Primary Care Provider Encounter Details Date Type Department Care Team Description 01/28/2017 Hospital Encounter [facility] [place] Unknown, Provider, [facility] [address] [facility] [phone] [place] [address] (Work) [phone] Social History Tobacco Use Types Packs/Day Years Used Date Never Assessed Sex Assigned at Date Recorded Not on file documented as of this encounter Discharge Disposition Disposition Code Departure Means Destination Auto Discharge Home documented in this encounter Plan of Treatment Not on filedocumented as of this encounter Visit Diagnoses Not on filedocumented in this encounter Care Teams Airplane Electrician Relationship Specialty Start Date End Date Unknown, Provider, PCP - General 02/04/10 documented as of this encounter
--- NOTE | 2021-11-20 07:15 | DI.RAD_ITS ---
Exam(s) XR FOOT RT COMPLETE EXAM: XR FOOT RT COMPLETE CLINICAL HISTORY: rt lateral foot pain, s/p trauma (heavy weight),M79.671. TECHNIQUE: 2D digital imaging was performed. Three views. COMPARISON: No exams were available for comparison FINDINGS: BONES: No acute fracture is present. There has been apparent previous resection of the head of the p roximal phalanx of the 5th toe as well as the base of the middle phalanx. No bony destructive lesion is seen. Plantar calcaneal spur is noted. JOINTS: No dislocation present. SOFT TISSUE: Vascular calcifications. 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 No acute abnormality. DATA REPOSITORY: RADIATION DOSE DELIVERED:
== END ==
PROVIDERS: PCP Family Medicine; Visit Provider Family Medicine
DX: M20.5X1 Other deformities of toe(s) (acquired), right foot (principal); Z87.828 Personal history of other (healed) physical injury and trauma
CPT/HCPCS: 73630

== ENCOUNTER → 2021-12-03 00:14 | Outpatient (CLI) | payer MEDICARE, OTHER, SELFPAY ==
--- NOTE | 2021-12-03 07:15 | DI.NM_ITS ---
APPROVED REPORT Exam: Exercise Treadmill Patient Location: Out-Patient Room/Bed: Stress Nurse: Lawanda Richter RN Ordering Provider:JAN GARDNER, Contact Number: [phone] BMI: 30.12 Baseline Rhythm: Sinus Bradycardia Indications: Chest pressure Medical History Medical History: PVC's, head injury, subclinical hypthyroidism, gout, COVID 19, mx orthopedic history Cardiac Medications: Atenolol, Lisinopril Allergies: Bees, Simvastatin Cardiac Risk Factors: HTN, smoker, obesity Previous Cardiac Procedures: None Pretest Chest Pain Characteristics: None Exercise History: Physically active Physical Disabilities: None Lung Sounds: Cleart to air bilaterally Heart Sounds: S1/S2, regular Stress Test Details Test: Exercise stress testing was performed using a Alex protocol. Nuclear Acquisition: Rest Tc-99m/Stress Tc-99m 1 day Rest Isotope: Tc-99m Sestamibi. Dose: 11 Date: 12/03/2021 Injection Time: 0920 Stress Isotope: Tc-99m Sestamibi. Dose: 37 Date: 12/03/2021 Injection Time: 1132 HR Resting HR Supine: 56 bpm Max Heart Rate (APMHR): 141.392279 bpm Resting HR Standin bpm Target HR (85% APMHR): 119.027969 bpm Max HR Achieved: 148 bpm % of APMHR: 104.96 Recovery HR: 82 bpm HR response to stress: Normal HR response to stress BP Resting BP Supine: 144/84 mmHg Resting BP Standin/80 mmHg Max BP: 200/80 mmHg Recovery BP: 154/80 mmHg BP response to stress: Normal blood pressure response to stress. ECG Resting ECG: Sinus Bradycardia Comment: Inverted T waves in III, V3 Stress ECG: Sinus Tachycardia ST Change: No significant ST segment changes noted Arrhythmia: PVC's, PAC's Recovery ECG: Sinus Rhythm Recovery ST Change: No significant ST segment changes noted Recovery Arrhythmia: PVC's, PAC's Clinical Reason for Termination: Fatigue Stress Symptoms: None Exercise duration: 10 min35 sec Highest Stage Reached: Stage 4: 4.2 mph at 16% grade. Exercise capacity: 12.22 METs Angina Score: None Carrillo Treadmill Score: 10.2 Rate Pressure Product: [id number] Stress ECG Conclusion 1. Resting electrocardiogram was within normal limits 2. Patient exercised on the Alex protocol and completed a workload of 12.22 METS 3. Normal heart rate and blood pressure response to exercise. The patient achieved greater than 100% of predicted heart rate for age 4. There was no electrocardiographic evidence of myocardial ischemia 5. There were no significant dysrhythmias 6. See MPI report Carrillo Treadmill Score is 10.2 which is Low risk. Stress Test Summary STAGE Time (mins) Speed (mph) Grade (%) HR BP SpO2 SYMPTOMS METS Supine 56 144/84 Standing 66 140/80 98% 1 3 1.7 10 85 130/84 95% 4.5 2 6 2.5 12 110 146/84 95% 7 3 9 3.4 14 111 160/80 98% 10 4 12 4.2 16 143 13 1 min recovery 108 198/78 3 min recovery 79 200/80 6 min recovery 82 154/80 98% Patient reached stage 4 and was able to meet his target heart rate. Pt was unable to maintain stage 4 post injection so treadmill speed and incline were decreased so patient could continue walking for 1 minute post injection. MPI Conclusion Myocardial perfusion is normal without evidence of ischemia or prior infarction EF 68%, normal wall motion Radiologist Interpretation Radiologist agrees with Internal Specialist's Interpretation. Radiologist Interpretation by: Christiano Rhodes MD Interpretation Date/Time: 12/03/2021 15:53:00
== END ==
PROVIDERS: PCP Family Medicine; Visit Provider Family Medicine
DX: R07.9 Chest pain, unspecified (principal)
CPT/HCPCS: 78452; 93016; 93018; 93017

== ENCOUNTER 2021-12-17 03:43 | Outpatient (RCR) | payer MEDICARE, OTHER, SELFPAY ==
--- NOTE | 2021-12-17 08:30 | HOLTER_ITS ---
APPROVED REPORT Conclusion This is a 48-hour Holter monitor reportedly ordered for atrial fibrillation Predominant rhythm was sinus with an average heart rate of 61. Minimum was 45, maximum 98 There were rare ventricular ectopic beats There were very rare atrial premature beats. There was one 9 beat run of premature atrial contractio ns There was no atrial fibrillation, no high-grade AV block, no pauses greater than 3 seconds No patient symptoms were reported
== END 2022-01-13 23:59 | disposition home or self-care (01) ==
LOC: RT 03:43
PROVIDERS: PCP Family Medicine; Visit Provider Family Medicine
DX: I48.91 Unspecified atrial fibrillation (principal); I49.1 Atrial premature depolarization
CPT/HCPCS: 93227; 93225; 93226

== ENCOUNTER 2023-02-09 02:44 | Outpatient (CLI) | payer MEDICARE, OTHER, SELFPAY ==
[2023-02-09 13:14] LABS: Anion Gap 8.5 mmol/L (3-11); BUN 18 mg/dL (7-18); CO2 27.5 mmol/L (21.0-32.0); CREATININE 1.2 mg/dL (0.70-1.30); Calcium 9.3 mg/dL (8.5-10.1); Calculated LDL 73 mg/dL (<100); Chloride 105 mmol/L (98-107); Cholesterol 150 mg/dL (<200); Estimated GFR 60.75 (mL/min/1.73m2); Glucose 128 mg/dL (74-106); HDL Cholesterol 38 mg/dL (40-60); Potassium 4.2 mmol/L (3.5-5.1); Sodium 141 mmol/L (136-145); Triglyceride 195 mg/dL (<150)
== END 2023-02-09 02:45 | disposition home or self-care (01) ==
LOC: LOS 02:46
PROVIDERS: PCP Family Medicine; Visit Provider Family Medicine
DX: E87.1 Hypo-osmolality and hyponatremia (principal); E78.5 Hyperlipidemia, unspecified; I10 Essential (primary) hypertension
CPT/HCPCS: 36415; 80048; 80061

== ENCOUNTER → 2023-05-24 01:22 | Outpatient (CLI) | payer MEDICARE, OTHER, SELFPAY ==
--- NOTE | 2023-05-24 | DI.RAD_ITS ---
Exam(s) XR KNEE LT 3V AP,LAT,ANN EXAM: XR KNEE LT 3V AP,LAT,ANN CLINICAL HISTORY: DC AUTH# [id number] PAIN IN KNEE M25.569. TECHNIQUE: 2D digital imaging was performed. COMPARISON: CR XR KNEE RT 3V AP,LAT,ANN from 05/24/2023 FINDINGS: 3 views No evidence of fracture. Small amount of increased joint fluid. Bone density normal. No osseous le sions. There is mild-moderate narrowing of the medial compartment. No osteophytes. No osteochondra l defects. IMPRESSION: Some degenerative change in the medial compartment. Small amount of increased joint fluid. No loose intra-articular bodies evident. DATA REPOSITORY: RADIATION DOSE DELIVERED:
--- NOTE | 2023-05-24 | DI.RAD_ITS ---
Exam(s) XR KNEE RT 3V AP,LAT,ANN EXAM: XR KNEE RT 3V AP,LAT,ANN CLINICAL HISTORY: NM AUTH# [id number] PAIN IN KNEE M25.569. TECHNIQUE: 2D digital imaging was performed. COMPARISON: No exams were available for comparison FINDINGS: 3 views No evidence of acute fracture nor obvious joint effusion. Bone density normal. No significant osseo us lesions. Mild degenerative changes in the lateral compartment. There is an osteophytic density m easuring 13 mm cephalocaudal by 5 mm AP by 7 mm wide. This is in the supero medial aspect of the sup rapatellar bursa region. There is also a tiny calcification in the soft tissues immediately adjacent to the outer aspect of the medial femoral condyle-MCL level. IMPRESSION: Findings as above. DATA REPOSITORY: RADIATION DOSE DELIVERED:
== END ==
PROVIDERS: PCP Family Medicine; Visit Provider Physician Assistant
DX: M25.561 Pain in right knee (principal)
CPT/HCPCS: 73562

== ENCOUNTER 2023-11-10 01:28 | Outpatient (CLI) | payer MEDICARE, OTHER, SELFPAY ==
[2023-11-10 12:26] LABS: Abs Immature Grans 0.04 10^3/uL (0.0-0.06); Absolute Basophil Count 0.03 10^3/uL (0.0-0.2); Absolute Eosinophil Count 0.19 10^3/uL (0.0-0.7); Absolute Lymphocyte Count 1.66 10^3/uL (1.2-3.4); Absolute Monocyte Count 0.53 10^3/uL (0.1-0.8); Basophils % 0.5 %; Eosinophils % 2.9 %; HCT 43.8 % (40.0-50.0); HGB 15.2 g/dL (13.5-17.5); Immature Grans % 0.6 %; MCH 32.5 pg (27.0-33.0); MCHC 34.7 % (32.0-36.0); MCV 94 fL (80-95); MPV 11.3 fL (8.0-11.0); Platelet Count 164 10^3/uL (130-400); RBC 4.67 10^6/uL (4.36-5.78); RDW 13.9 % (11.8-14.1); WBC 6.65 10^3/uL (4.4-10.8)
[2023-11-10 12:50] LABS: Hemoglobin A1C 5.6 % (<5.7)
[2023-11-11 13:47] LABS: Lyme Ab w Rflx to Lyme Confirm Negative (Negative)
[2023-11-12 23:52] LABS: Anaplasma phagocytophilum Negative (Negative); B. miyamotoi PCR Negative (Negative); Babesia divergens/MO-1 Negative (Negative); Babesia duncani Negative (Negative); Babesia microti Negative (Negative); Ehrlichia chaffeensis Negative (Negative); Ehrlichia ewingii/canis Negative (Negative); Ehrlichia muris eauclairensis Negative (Negative)
== END 2023-11-10 01:29 | disposition home or self-care (01) ==
LOC: LOS 01:29
PROVIDERS: PCP Family Medicine; Visit Provider Nurse Practitioner Family
DX: E11.51 Type 2 diabetes mellitus with diabetic peripheral angiopathy without gangrene (principal); I70.209 Unspecified atherosclerosis of native arteries of extremities, unspecified extremity; W57.XXXA Bitten or stung by nonvenomous insect and other nonvenomous arthropods, initial encounter
CPT/HCPCS: 36415; 87798; 83036; 85025; 86618

== ENCOUNTER 2024-02-20 03:17 | Outpatient (CLI) | payer MEDICARE, OTHER, SELFPAY ==
[2024-02-20 12:56] LABS: CREATININE 1.1 mg/dL (0.70-1.30); Estimated GFR 67.02 (mL/min/1.73m2); Potassium 4.4 mmol/L (3.5-5.1)
[2024-02-21 09:27] LABS: HIV-1/2 Ag & Ab Screen Negative (Negative)
[2024-02-21 10:36] LABS: Hepatitis C Ab w Rflx HCV PCR Negative (Negative)
== END 2024-02-20 03:18 | disposition home or self-care (01) ==
LOC: LOS 03:17
PROVIDERS: PCP Family Medicine; Visit Provider Family Medicine
DX: Z11.59 Encounter for screening for other viral diseases (principal); I10 Essential (primary) hypertension; Z00.00 Encounter for general adult medical examination without abnormal findings
CPT/HCPCS: 36415; 86803; 87389; 82565; 84132

== ENCOUNTER → 2025-05-06 09:57 | Outpatient (CLI) | payer MEDICARE, OTHER, SELFPAY ==
--- NOTE | 2025-05-06 09:59 | DI.RAD_ITS ---
Exam(s) XR CHEST 2V PA LATERAL EXAM: XR CHEST 2V PA LATERAL CLINICAL HISTORY: eval path, COUGH, R05.9 TECHNIQUE: 2D digital imaging was performed of the chest. Two images were obtained. PA and lateral views were obtained. COMPARISON: CR CHEST 2 VIEWS PA,LAT from 02/13/2015 FINDINGS: MEDIASTINUM: Normal. HEART: Normal. PULMONARY VASCULATURE: Normal. LUNGS: Clear. PLEURAL SPACE: No pleural effusion or pneumothorax. BONE:Within normal limits for the patient's age. OTHER FINDINGS:Normal. IMPRESSION: No acute pulmonary findings. DATA REPOSITORY: RADIATION DOSE DELIVERED:
== END ==
LOC: DI 09:58
PROVIDERS: PCP Family Medicine; Visit Provider Nurse Practitioner Family
DX: R05.9 Cough, unspecified (principal)
CPT/HCPCS: 71046